=== PATIENT | male | born 1940 | race Caucasian/White ===

== ENCOUNTER 2018-12-24 14:29 | Observation (INO) | payer MEDICARE ==
[2018-12-24] MEDS ORDERED: BABY ASPIRIN 81 MG CHEW PO ONE (15:00)
--- NOTE | 2018-12-24 15:08 | ERPHSYRPT ---
- History of Present Illness Time Seen by Provider: 12/24/18 14:54 Historian: patient Exam Limitations: no limitations Patient Subjective Stated Complaint: Pt states "about an hour ago I started to have chest pain. It didn't get any better so I came here." Triage Nursing Assessment: Pt alert and oriented X 3, skin pwd Pt ambulates with an upright slow steady gait, able to speak in clear full sentences. PT in no apparent respiratory distress. Pt on home O2 2 LPM. Physician History: 78-year-old white male arrives with complaint of what he calls chest pain however he points to his left upper abdomen just inferior to the rib cage he describes this as sharp stabbing he states he is chronically short of breath he states it doesn't feel like when he had a heart attack but he has had heart problems in the past and and is worried about chest pain. He states he doesn't feel more short of breath than usual he is not nauseous. He states that he rated his pain initially had a 6 out of 10 he told the nurses 5 out of 10 he now states it is 3 out of 10 and it is improving. 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 Past medical history includes cataracts, COPD, coronary artery disease, high blood pressure, GERD, arthritis, past surgical history includes cataracts, pacer defibrillator, cholecystectomy, CABG, cardiac stents 4 Social history patient is a former smoker he denies alcohol or illicit drug use Timing/Duration: today (one hour prior to arriva) Activities at Onset: none Quality: sharpness, stabbing Location: other (located left upper abdomen just under the rib cage anteriorly) Chest Pain Radiation: no radiation Severity of Pain-Max: moderate Severity of Pain-Current: mild Associated Symptoms: abdominal pain (pain left upper quadrant just under the rib cage), shortness of breath (chronic short of breath), No nausea, No vomiting , No palpitations, No heartburn, No cough, No hurts to breathe, No diaphoresis, No chills, No fever, No fatigue, No weakness, No swelling/lump in chest, No syncope, No rash, No headache, No dizziness, No edema, No back pain Prior Chest Pain/Cardiac Workup: cardiac cath, heart attack Nitro Today/Relief: 0.4 mg x 3 Aspirin Treatment Today: 81 mg x 1 (81 mg at home), 81 mg x 3 (243 mg in the ER) Allergies/Adverse Reactions: No Known Drug Allergies Allergy (Unverified 12/24/18 14:40) Home Medications: Albuterol Sulfate [Albuterol Sulfate Hfa] 2 puffs IH Q4HPRN PRN 12/24/18 [ History] Allopurinol 300 mg [Zyloprim 300 mg] 300 mg PO DAILY 12/24/18 [History] Aspirin EC 81 mg [Ecotrin 81 mg] 81 mg PO DAILY 12/24/18 [History] Carvedilol 12.5 mg [Coreg 12.5 mg] 12.5 mg PO BID 12/24/18 [History] Clopidogrel Bisulfate 75 mg [PLAVIX 75 MG Tablet] 75 mg PO DAILY 12/24/18 [History] Diazepam 5 mg [Valium 5 MG] 1 mg PO DAILY 12/24/18 [History] Duloxetine HCl 20 mg PO DAILY 12/24/18 [History] Fluticasone/Salmeterol Disc [Advair 250-50 Diskus 14 Dose] 1 each IH BID 12/24/18 [History] Furosemide 40 mg [Lasix 40 MG] 40 mg PO DAILY 12/24/18 [History] Gabapentin 300 mg PO HS 12/24/18 [History] Isosorbide Mononitrate 60 mg [Imdur 60MG] 90 mg PO DAILY 12/24/18 [History] Magnesium 400 mg PO BID 12/24/18 [History] Meclizine HCl 25 mg [Antivert 25 mg] 25 mg PO DAILY PRN PRN 12/24/18 [ History] Nitroglycerin 0.4 mg SL UD 12/24/18 [History] Pantoprazole 20 mg [Protonix 20MG Tablet] 20 mg PO DAILY 12/24/18 [History ] Potassium Chloride 10 Meq Tab* [Klor Con 10 MEQ] 20 meq PO DAILY 12/24/18 [ History] Ranolazine 500 MG [Ranexa 500 MG] 500 mg PO DAILY 12/24/18 [History] Rosuvastatin Calcium [Crestor] 20 mg PO DAILY 12/24/18 [History] Sacubitril/Valsartan [Entresto 49 mg-51 mg Tablet] 1 each PO BID 12/24/18 [ History] Tiotropium Jelm Inhaler [Spiriva 18 Mcg/Cap Inhaler] 2 puff IH DAILY [History] Hx Tetanus, Diphtheria Vaccination/Date Given: No Hx Influenza Vaccination/Date Given: Yes Hx Pneumococcal Vaccination/Date Given: Yes Immunizations Up to Date: Yes - Review of Systems Constitutional: No Fever, No Chills Eyes: No Symptoms Ears, Nose, & Throat: No Symptoms Respiratory: Dyspnea (chronically short of breath), No Cough, No Dyspnea on Exertion (SANCHEZ), No Stridor, No Wheezing Cardiac: Chest Pain (Pain in the left upper abdomen just under rib cage patient describes this as chest pain) Abdominal/Gastrointestinal: Abdominal Pain (pain left upper abdomen just under rib cage), No Nausea, No Vomiting, No Diarrhea, No Constipation, No Hematemesis , No Hematochezia, No Melena, No Dysphagia, No Appetite Changes Genitourinary Symptoms: No Dysuria Musculoskeletal: No Back Pain, No Neck Pain Skin: No Rash Neurological: No Dizziness, No Focal Weakness, No Sensory Changes Endocrine: No Symptoms All Other Systems: Reviewed and Negative - Past Medical History Pertinent Past Medical History: Yes Neurological History: No Pertinent History ENT History: Cataracts Cardiac History: Coronary Artery Disease, Hypertension, Other Respiratory History: COPD Endocrine Medical History: No Pertinent History Musculoskeletal History: Arthritis GI Medical History: GERD History: No Pertinent History Psycho-Social History: No Pertinent History Male Reproductive Disorders: No Pertinent History - Past Surgical History Past Surgical History: Yes Neuro Surgical History: No Pertinent History Cardiac: CABG, Internal Defibrillator, Pacemaker Respiratory: No Pertinent History Gastrointestinal: Cholecystectomy Genitourinary: No Pertinent History Musculoskeletal: No Pertinent History Male Surgical History: No Pertinent History - Social History Smoking Status: Former smoker Exposure to second hand smoke: No Drug Use: none Patient Lives Alone: No - Nursing Vital Signs Nursing Vital Signs: Initial Vital Signs Temperature 97.6 F 12/24/18 14:30 Pulse Rate 86 12/24/18 14:30 Respiratory Rate 18 12/24/18 14:30 Blood Pressure 88/58 12/24/18 14:30 O2 Sat by Pulse Oximetry 96 12/24/18 14:30 Pain Scale Pain Intensity 5 - Physical Exam General Appearance: mild distress, alert Eye Exam: PERRL/EOMI, eyes nml inspection Ears, Nose, Throat Exam: normal ENT inspection, moist mucous membranes Neck Exam: normal inspection, non-tender, supple, full range of motion Respiratory Exam: normal breath sounds, lungs clear, No respiratory distress Cardiovascular Exam: regular rate/rhythm, normal heart sounds, normal peripheral pulses, capillary refill <2 sec Gastrointestinal/Abdomen Exam: soft, normal bowel sounds, tenderness (tender with palpation left upper abdomen just under her rib cage), No distention, No mass, No guarding, No ecchymosis, No pulsatile mass, No rebound, No hernia, No hepatomegaly, No organomegaly, No splenomegaly Back Exam: normal inspection, No CVA tenderness, No vertebral tenderness Extremity Exam: normal inspection, normal range of motion Neurologic Exam: alert, oriented x 3, cooperative, lining cementer II-XII nml as tested, normal mood/affect, sensation nml, No motor deficits SpO2 Interpretation: normal (96%) SpO2: 96 - Course Nursing assessment & vital signs reviewed: Yes EKG Interpreted by Me: RATE (88 bpm), Sinus Rhythm, Other (EKG: Sinus rhythm 88 bpm, moderate amount of artifact, indeterminate axis, no acute ST or T wave changes noted, no old EKG for comparison) - Radiology Exams Chest X-ray Interpretation: Interpreted by me (Chest x-ray: Pacer/defibrillator in place left chest, status post CABG, no infiltrates or pneumothorax noted.) Ordered Tests: Active Orders 24 hr Category Date Time Status EKG-ER Only STAT Care 12/24/18 15:00 Active IV Insertion STAT Care 12/24/18 15:00 Active Pulse Oximetry (ED) STAT Care 12/24/18 15:00 Active CHEST 1 VIEW (PORTABLE) Stat Exams 12/24/18 15:01 Taken AMYLASE Stat Lab 12/24/18 15:35 Completed CBC W DIFF Stat Lab 12/24/18 15:28 Completed CMP Stat Lab 12/24/18 15:28 Completed D-DIMER QUANTITATION Stat Lab 12/24/18 15:28 Completed LIPASE Stat Lab 12/24/18 15:35 Completed PROTIME WITH INR Stat Lab 12/24/18 15:28 Completed PTT Stat Lab 12/24/18 15:28 Completed TROPONIN Q3H Lab 12/24/18 15:28 Completed TROPONIN Q3H Lab 12/24/18 18:15 Ordered TROPONIN Q3H Lab 12/24/18 21:15 Ordered TROPONIN Q3H Lab 12/25/18 00:15 Ordered TROPONIN Q3H Lab 12/25/18 03:15 Ordered Transfer Order Routine Transfer 12/24/18 Ordered Medication Summary Generic Name Dose Route Start Last Admin Trade Name Freq PRN Reason Stop Dose Admin Sodium Chloride 1,000 mls @ 100 mls/hr 12/24/18 15:00 12/24/18 15:15 Sodium Chloride 0.9% 1000 Ml IV 01/23/19 14:59 100 mls/hr .Q10H MAURY Administration Potassium Chloride 100 mls @ 50 mls/hr 12/24/18 16:00 12/24/18 16:01 Potassium Chloride 20 Meq In Water 100ml IV 12/24/18 19:59 50 mls/hr Q2H MAURY Administration Discontinued Medications Generic Name Dose Route Start Last Admin Trade Name Freq PRN Reason Stop Dose Admin Aspirin 243 mg 12/24/18 15:00 12/24/18 15:14 Baby Aspirin 81 Mg Chew PO 12/24/18 15:01 243 mg STAT ONE Administration Aspirin Confirm 12/24/18 15:13 Baby Aspirin 81 Mg Chew Administered 12/24/18 15:14 Dose 243 mg .ROUTE .STK-MED ONE Lab/Rad Data: Laboratory Result Diagrams 12/24/18 15:28 12/24/18 15:28 Laboratory Results 12/24/18 12/24/18 12/24/18 Range/Units 15:35 15:28 15:28 WBC (4.0-10.5) K/mm3 RBC (4.1-5.6) M/mm3 Hgb (12.5-18.0) gm/dl Hct (42-50) % MCV (78-100) fl MCH (26-32) pg MCHC (32-36) g/dl RDW (11.5-14.0) % Plt Count (150-450) K/mm3 MPV (6-9.5) fl Gran % (36.0-66.0) % Eos # (Auto) (0-0.5) Absolute Lymphs (auto) (1.0-4.6) Absolute Monos (auto) (0.0-1.3) Lymphocytes % (24.0-44.0) % Monocytes % (0.0-12.0) % Eosinophils % (0.00-5.0) % Basophils % (0.0-0.4) % Absolute Granulocytes (1.4-6.9) Basophils # (0-0.4) PT 13.3 H (8.83-12.87) SECONDS INR 1.14 (0.8-3.0) APTT 31.1 (24.1-36.1) SECONDS D-Dimer 261 (215-500) ng/mL Sodium (137-145) mmol/L Potassium (3.5-5.1) mmol/L Chloride (98-107) mmol/L Carbon Dioxide (22-30) mmol/L Anion Gap (5-15) MEQ/L BUN (9-20) mg/dL Creatinine (0.66-1.25) mg/dL Estimated GFR ML/MIN Glucose (74-106) mg/dL Calcium (8.4-10.2) mg/dL Total Bilirubin (0.2-1.3) mg/dL AST (17-59) U/L ALT (0-50) U/L Alkaline Phosphatase (38-126) U/L Troponin I 0.013 (0.000-0.034) ng/mL Serum Total Protein (6.3-8.2) g/dL Albumin (3.5-5.0) g/dL Amylase 31 (30-110) U/L Lipase 36 (23-300) U/L 12/24/18 12/24/18 Range/Units 15:28 15:28 WBC 7.5 (4.0-10.5) K/mm3 RBC 4.75 (4.1-5.6) M/mm3 Hgb 15.2 (12.5-18.0) gm/dl Hct 43.5 (42-50) % MCV 91.6 (78-100) fl MCH 32.0 (26-32) pg MCHC 34.9 (32-36) g/dl RDW 13.2 (11.5-14.0) % Plt Count 207 (150-450) K/mm3 MPV 11.3 H (6-9.5) fl Gran % 62.6 (36.0-66.0) % Eos # (Auto) 0.12 (0-0.5) Absolute Lymphs (auto) 2.07 (1.0-4.6) Absolute Monos (auto) 0.57 (0.0-1.3) Lymphocytes % 27.8 (24.0-44.0) % Monocytes % 7.7 (0.0-12.0) % Eosinophils % 1.6 (0.00-5.0) % Basophils % 0.3 (0.0-0.4) % Absolute Granulocytes 4.67 (1.4-6.9) Basophils # 0.02 (0-0.4) PT (8.83-12.87) SECONDS INR (0.8-3.0) APTT (24.1-36.1) SECONDS D-Dimer (215-500) ng/mL Sodium 142 (137-145) mmol/L Potassium 2.7 L* (3.5-5.1) mmol/L Chloride 98 (98-107) mmol/L Carbon Dioxide 32 H (22-30) mmol/L Anion Gap 15.2 H (5-15) MEQ/L BUN 19 (9-20) mg/dL Creatinine 1.13 (0.66-1.25) mg/dL Estimated GFR > 60.0 ML/MIN Glucose 196 H (74-106) mg/dL Calcium 9.8 (8.4-10.2) mg/dL Total Bilirubin 1.20 (0.2-1.3) mg/dL AST 23 (17-59) U/L ALT 16 (0-50) U/L Alkaline Phosphatase 70 (38-126) U/L Troponin I (0.000-0.034) ng/mL Serum Total Protein 7.8 (6.3-8.2) g/dL Albumin 4.2 (3.5-5.0) g/dL Amylase (30-110) U/L Lipase (23-300) U/L - Progress Progress: improved Air Movement: fair Progress Note: 12/24/18 15:08 78-year-old white male with history of cataracts, COPD, coronary artery disease , high blood pressure, GERD, arthritis, with a history of CABG, stents 4 and a pacer defibrillator. He arrives with complaint of pain in which she describes his chest pain but when he shows me the pain he points with one finger to his left upper abdomen just under the rib cage. He states that this a sharp stabbing pain this began one hour prior to arrival he states he is chronically short of breath but it is not more short of breath than usual he denies any nausea or vomiting. Patient has an EKG which shows sinus rhythm moderate amount of artifact indeterminate axis [address] or T wave changes are noted. Patient does state that he feels like he is getting better. He has a very strong history of cardiac disease. He apparently has a physician and a corset maker in [facility]. Patient took one baby aspirin today he is also on Plavix 75 mg daily. We'll go ahead and give patient aspirin 243 mg orally and obtain appropriate labs and x-rays. 12/24/18 16:08 Patient is feeling better pain is essentially gone Patient's chest x-ray no acute disease process noted troponin within normal limits with the level of 0.013D dimer within normal limits amylase and lipase are normal chemistry sodium 142 potassium is low at 2.7 chloride 98 bicarbonate 32 BUN 19 creatinine 1.13 glucose 196 CBC is normal with white count of 7.5 hemoglobin 15.2 hematocrit 43.5 Patient's vitals are stable blood pressure systolic 102 I've ordered a K rider 40 mEq for the patient (20 mEq every 2 hours 2) The patient wishes to stay here I've discussed the case with Dr. Carbajal who is assistant controller for the hospital. Will go ahead and place patient on observation continue serial troponins. And patient will get his K rider. Patient is in stable condition at this time - Departure Departure Disposition: Home, Observation Clinical Impression: Hypokalemia Chest pain Qualifiers: Chest pain type: unspecified Qualified Code(s): R07.9 - Chest pain, unspecified Abdominal pain Qualifiers: Abdominal location: left upper quadrant Qualified Code(s): R10.12 - Left upper quadrant pain Condition: Fair Critical Care Time: No Referrals: Provider,Unknown [Primary Care Provider] -
[2018-12-24] MEDS ORDERED: BABY ASPIRIN 81 MG CHEW ONE (15:13)
[2018-12-24] MEDS: Sodium Chloride 0.9% 1000 ML 1,000 ML IV SCH (15:15)
[2018-12-24 15:30] LABS: BASOPHIL % 0.3 % (0.0-0.4); Basophil (Absolute #) 0.02 (0-0.4); Eosinophil % 1.6 % (0.00-5.0); Eosinophil (Absolute #) 0.12 (0-0.5); Granulocyte Absolute (ANC) 4.67 (1.4-6.9); Granulocytes % 62.6 % (36.0-66.0); Hematocrit 43.5 % (42-50); Hemoglobin 15.2 gm/dl (12.5-18.0); Lymphocyte (Absolute #) 2.07 (1.0-4.6); Lymphocytes % 27.8 % (24.0-44.0); Mean Cell Volume 91.6 fl (78-100); Mean Corpuscular Hgb Concent. 34.9 g/dl (32-36); Mean Platelet Volume 11.3 fl (6-9.5); Monocyte (Absolute #) 0.57 (0.0-1.3); Monocytes % 7.7 % (0.0-12.0); Platelet Count 207 K/mm3 (150-450); Red Blood Count 4.75 M/mm3 (4.1-5.6); Red Cell Distribution Width 13.2 % (11.5-14.0); White Blood Count 7.5 K/mm3 (4.0-10.5)
[2018-12-24 15:43] LABS: INR 1.14 (0.8-3.0); PROTIME 13.3 SECONDS (8.83-12.87)
[2018-12-24 15:45] LABS: PTT 31.1 SECONDS (24.1-36.1)
[2018-12-24 15:46] LABS: AMYLASE 31 U/L (30-110); LIPASE 36 U/L (23-300)
[2018-12-24 15:47] LABS: ALBUMIN 4.2 g/dL (3.5-5.0); ALKALINE PHOSPHATASE 70 U/L (38-126); ANION GAP 15.2 MEQ/L (5-15); BLOOD UREA NITROGEN 19 mg/dL (9-20); CHLORIDE 98 mmol/L (98-107); Calcium 9.8 mg/dL (8.4-10.2); Carbon Dioxide 32 mmol/L (22-30); Creatinine 1 1.13 mg/dL (0.66-1.25); Glucose 196 mg/dL (74-106); SGOT/AST 23 U/L (17-59); SGPT/ALT 16 U/L (0-50); SODIUM 142 mmol/L (137-145); Total Protein 7.8 g/dL (6.3-8.2)
[2018-12-24 15:49] LABS: Potassium 2.7 mmol/L (3.5-5.1)
[2018-12-24] MEDS: POTASSIUM CHLORIDE 20 mEq IN WATER 100ML 100 ML IV SCH ×2 (16:01→18:21)
--- NOTE | 2018-12-24 16:16 | XRAY ---
Indication: Chest pain. Comparison: None Portable chest demonstrates blunting both costophrenic angles either tiny pleural effusion versus pleural thickening. Remaining lungs clear with incidental tiny left midlung calcified granuloma. Heart is not enlarged with CABG surgery and left-sided AICD. Bony thorax intact with mild osteopenia and degenerative changes. Impression: Tiny bibasilar pleural effusions versus pleural thickening. Remaining chest nonacute with chronic features.
[2018-12-24] MEDS ORDERED: Sodium Chloride 0.9% 1000 ML 1,000 ML IV SCH (16:26)
[2018-12-24] MEDS: ENTRESTO 49 MG-51 MG TABLET PO SCH (21:12)
[2018-12-24] MEDS: COREG 12.5 MG PO SCH (21:12)
[2018-12-24] MEDS ORDERED: NEURONTIN 300 MG PO SCH (22:00)
[2018-12-24] MEDS: POTASSIUM CHLORIDE 20 mEq IN WATER 100ML 20 MEQ/100 ML BAG IV SCH (23:07)
[2018-12-25] MEDS: Sodium Chloride 0.9% 1000 ML 1,000 ML IV SCH (01:15)
[2018-12-25] MEDS: POTASSIUM CHLORIDE 20 mEq IN WATER 100ML 20 MEQ/100 ML BAG IV SCH (01:16)
[2018-12-25 04:11] LABS: ALBUMIN 3.5 g/dL (3.5-5.0); ALKALINE PHOSPHATASE 60 U/L (38-126); ANION GAP 9.4 MEQ/L (5-15); BLOOD UREA NITROGEN 14 mg/dL (9-20); CHLORIDE 101 mmol/L (98-107); Carbon Dioxide 33 mmol/L (22-30); Creatinine 1 0.78 mg/dL (0.66-1.25); Glucose 119 mg/dL (74-106); SGOT/AST 26 U/L (17-59); SGPT/ALT 12 U/L (0-50); SODIUM 141 mmol/L (137-145); Total Protein 6.5 g/dL (6.3-8.2)
[2018-12-25 04:14] LABS: BASOPHIL % 0.4 % (0.0-0.4); Basophil (Absolute #) 0.02 (0-0.4); Eosinophil % 2.5 % (0.00-5.0); Eosinophil (Absolute #) 0.14 (0-0.5); Granulocyte Absolute (ANC) 2.74 (1.4-6.9); Granulocytes % 48.4 % (36.0-66.0); Hematocrit 39.1 % (42-50); Hemoglobin 13.5 gm/dl (12.5-18.0); Lymphocyte (Absolute #) 2.13 (1.0-4.6); Lymphocytes % 37.6 % (24.0-44.0); Mean Cell Volume 92.4 fl (78-100); Mean Corpuscular Hemoglobin 31.9 pg (26-32); Mean Corpuscular Hgb Concent. 34.5 g/dl (32-36); Mean Platelet Volume 10.8 fl (6-9.5); Monocyte (Absolute #) 0.63 (0.0-1.3); Monocytes % 11.1 % (0.0-12.0); Platelet Count 150 K/mm3 (150-450); Red Blood Count 4.23 M/mm3 (4.1-5.6); Red Cell Distribution Width 12.9 % (11.5-14.0); White Blood Count 5.7 K/mm3 (4.0-10.5)
[2018-12-25 04:18] LABS: Potassium 2.8 mmol/L (3.5-5.1)
[2018-12-25] MEDS ORDERED: Spiriva 18 Mcg/Cap Inhaler IH SCH (07:00)
[2018-12-25] MEDS ORDERED: Advair Hfa 115/21 Common canister IH SCH (07:00)
[2018-12-25] MEDS ORDERED: PROVENTIL COMMON CANISTER IH PRN (07:00)
[2018-12-25] MEDS ORDERED: ANTIVERT 25 MG PO PRN (07:12)
[2018-12-25] MEDS ORDERED: Nitrostat 0.4 MG Tablet SL PRN (07:15)
[2018-12-25] MEDS ORDERED: DIAZEPAM 1 MG PO SCH (07:15)
[2018-12-25] MEDS ORDERED: MEDICATION INTERVENTION MC SCH ×2 (07:45)
[2018-12-25] MEDS ORDERED: POTASSIUM CHLORIDE 20 mEq IN WATER 100ML 20 MEQ/100 ML BAG IV SCH (08:45)
[2018-12-25] MEDS ORDERED: Potassium Chloride 40 MEQ/20 ML VIAL 40 MEQ, Magnesium Sulfate 1 GM/2 ML VIAL*** 1 GM i... IV ONE ×3 (09:15)
[2018-12-25] MEDS ORDERED: DULOXETINE HCL 20 MG PO SCH (10:00)
[2018-12-25] MEDS ORDERED: THERAGRAN MULTIVITAMIN PO SCH (10:00)
[2018-12-25] MEDS ORDERED: Lasix 40 MG PO SCH (10:00)
[2018-12-25] MEDS ORDERED: NON-FORMULARY ITEM (Multivitamin [Multi-Vitamin Daily] 1 EACH) PO SCH (10:00)
[2018-12-25] MEDS ORDERED: PLAVIX 75 MG Tablet PO SCH (10:00)
[2018-12-25] MEDS ORDERED: DHA PO SCH (10:00)
[2018-12-25] MEDS ORDERED: ZOCOR 20MG PO SCH (10:00)
[2018-12-25] MEDS ORDERED: Imdur 30 MG PO SCH (10:00)
[2018-12-25] MEDS ORDERED: Protonix 20MG Tablet PO SCH (10:00)
[2018-12-25] MEDS ORDERED: EPA PO SCH (10:00)
[2018-12-25] MEDS ORDERED: OMEGA PO SCH (10:00)
[2018-12-25] MEDS ORDERED: NON-FORMULARY ITEM (Rosuvastatin Calcium [Crestor] 20 MG) PO SCH (10:00)
[2018-12-25] MEDS ORDERED: Ecotrin 325 MG PO SCH (10:00)
[2018-12-25] MEDS ORDERED: FISH OIL 1,000 MG CAPSULE PO SCH (10:00)
[2018-12-25] MEDS ORDERED: ZYLOPRIM 300 MG PO SCH (10:00)
[2018-12-25] MEDS ORDERED: FISH OIL PO SCH (10:00)
[2018-12-25] MEDS ORDERED: Imdur 60MG PO SCH (10:00)
[2018-12-25] MEDS ORDERED: Ranexa 500 MG PO SCH (10:00)
[2018-12-25] MEDS ORDERED: ECOTRIN 81 MG PO SCH (10:00)
[2018-12-25] MEDS: COREG 12.5 MG PO SCH (10:30)
[2018-12-25] MEDS: ENTRESTO 49 MG-51 MG TABLET PO SCH (10:32)
[2018-12-25 12:09] VITALS: BP 105/52; PULSE 74; O2SAT 93
--- NOTE | 2018-12-25 12:49 | PCM.SSS ---
History of Present Illness - Chief Complaint Chief Complaint: CHEST PAIN for 1 day History of Present Illness: 78-year-old white male arrives with complaint of what he calls chest pain however he points to his left upper abdomen just inferior to the rib cage he describes this as sharp stabbing he states he is chronically short of breath he states it doesn't feel like when he had a heart attack but he has had heart problems in the past and and is worried about chest pain. He states he doesn't feel more short of breath than usual he is not nauseous. He states that he rated his pain initially had a 6 out of 10 he told the nurses 5 out of 10 he now states it is 3 out of 10 and it is improving. Patient apparently with a basket person and family doctor in [facility] he states he was visiting people when pain began. Past medical history includes cataracts, COPD, coronary artery disease, high blood pressure, GERD, arthritis, past surgical history includes cataracts, pacer defibrillator, cholecystectomy, CABG, cardiac stents 4 - Review of Systems Constitutional: No Fever, No Chills Eyes: No Symptoms Ears, Nose, & Throat: No Symptoms Respiratory: No Cough, No Short Of Breath Cardiac: No Chest Pain, No Edema, No Syncope Abdominal/Gastrointestinal: No Abdominal Pain, No Nausea, No Vomiting, No Diarrhea Genitourinary Symptoms: No Dysuria Musculoskeletal: No Back Pain, No Neck Pain Skin: No Rash Neurological: No Dizziness, No Focal Weakness, No Sensory Changes Psychological: No Symptoms Endocrine: No Symptoms Hematologic/Lymphatic: No Symptoms Immunological/Allergic: No Symptoms Medications & Allergies Home Medications: Home Medication List Albuterol Sulfate [Albuterol Sulfate Hfa] 2 puffs IH Q4HPRN PRN 12/24/18 [ History Confirmed 12/24/18] Allopurinol 300 mg [Zyloprim 300 mg] 300 mg PO DAILY 12/24/18 [History Confirmed 12/24/18] Aspirin EC 81 mg [Ecotrin 81 mg] 81 mg PO DAILY 12/24/18 [History Confirmed 12/24/18] Carvedilol 12.5 mg [Coreg 12.5 mg] 12.5 mg PO BID 12/24/18 [History Confirmed 12/24/18] Clopidogrel Bisulfate 75 mg [PLAVIX 75 MG Tablet] 75 mg PO DAILY 12/24/18 [History Confirmed 12/24/18] Diazepam [Valium] 1 mg PO UD 12/24/18 [History Confirmed 12/24/18] Duloxetine HCl 20 mg PO DAILY 12/24/18 [History Confirmed 12/24/18] Fluticasone/Salmeterol Disc [Advair 250-50 Diskus 14 Dose] 1 each IH BID 12/24/18 [History Confirmed 12/24/18] Furosemide 40 mg [Lasix 40 MG] 40 mg PO DAILY 12/24/18 [History Confirmed 12/24/18] Gabapentin 300 mg PO HS 12/24/18 [History Confirmed 12/24/18] Isosorbide Mononitrate 60 mg [Imdur 60MG] 90 mg PO DAILY 12/24/18 [History Confirmed 12/24/18] Meclizine HCl 25 mg [Antivert 25 mg] 25 mg PO DAILY PRN PRN 12/24/18 [ History Confirmed 12/24/18] Multivitamin [Multi-Vitamin Daily] 1 each PO DAILY 12/24/18 [History Confirmed 12/24/18] Nitroglycerin 0.4 mg SL UD 12/24/18 [History Confirmed 12/24/18] [place]-3S/Dha/Epa/Fish Oil [[place]-3 Fish Oil 1,000 mg Sfgl] 1 each PO DAILY 12/24 [History Confirmed 12/24/18] Pantoprazole 20 mg [Protonix 20MG Tablet] 20 mg PO DAILY 12/24/18 [ History Confirmed 12/24/18] Ranolazine 500 MG [Ranexa 500 MG] 500 mg PO DAILY 12/24/18 [History Confirmed 12/24/18] Rosuvastatin Calcium [Crestor] 20 mg PO DAILY 12/24/18 [History Confirmed ] Sacubitril/Valsartan [Entresto 49 mg-51 mg Tablet] 1 each PO BID 12/24/18 [ History Confirmed 12/24/18] Tiotropium [place] Inhaler [Spiriva 18 Mcg/Cap Inhaler] 2 puff IH DAILY [History Confirmed 12/24/18] Potassium Chloride [K-Dur] 10 meq PO DAILY #30 tab.er.prt 12/25/18 [Rx] Allergies/Adverse Reactions: Allergies Allergy/AdvReac Type Severity Reaction Status Date / Time No Known Drug Allergies Allergy Unverified 12/24/18 14:40 - Past Medical History Past Medical History: Yes Neurological History: No Pertinent History ENT History: No Pertinent History Cardiac History: Congestive Heart Failure, Coronary Artery Disease, Hypertension , Myocardial Infarction ([place]) Respiratory History: CHF, COPD Endocrine Medical History: No Pertinent History Musculoskelatal History: Arthritis GI Medical History: Esophageal Disorder, Hemorrhoids History: Other Pyscho-Social History: Depression Male Reproductive Disorders: Prostate Problems Comment: KIDNEY STONES, ARTHRITIS OF KNEES AND BACK - Past Surgical History Past Surgical History: Yes Neuro Surgical History: No Pertinent History Cardiac History: CABG, Cardiac Stent, Internal Defibrillator, Pacemaker Respiratory Surgery: No Pertinent History GI Surgical History: Appendectomy, Cholecystectomy Genitourinary Surgical Hx: Other Musculskeletal Surgical Hx: No Pertinent History Male Surgical History: No Pertinent History Other Surgical History: CABG X 3, STENTS X 4, LITHOTRIPSY - Social History Smoking Status: Former smoker Exposure to second hand smoke: No Alcohol: None Drug Use: none - Physical Exam Vital Signs: Vital Signs - 24 hr Temp Pulse Pulse Resp BP Pulse Ox 12/25/18 12:00 98.5 F 74 18 105/52 93 L 12/25/18 08:00 98.2 F 79 18 129/73 94 L 12/25/18 07:18 76 20 92 L 12/25/18 04:00 18 12/25/18 03:51 97.8 F 78 18 118/64 91 L 12/25/18 00:00 18 12/24/18 23:46 97.3 F 76 18 116/82 92 L 12/24/18 20:00 17 12/24/18 19:51 94 L 12/24/18 19:36 97.6 F 78 17 122/59 92 L 12/24/18 17:00 96 12/24/18 16:57 85 22 97/55 12/24/18 16:41 98 F 85 22 97/55 96 12/24/18 16:16 96 12/24/18 16:07 97.6 F 82 18 106/66 94 L 12/24/18 15:13 80 20 102/67 95 12/24/18 15:11 94 L 12/24/18 14:30 97.6 F 88 86 18 88/58 96 Oxygen-Last 24 hours O2 Percentage 2 Liters = 28% O2 Percentage 2 Liters = 28% O2 Percentage 2 Liters = 28% O2 Percentage 2 Liters = 28% O2 Percentage 2 Liters = 28% O2 Percentage 3 Liters = 32% General Appearance: no apparent distress, alert Neurologic Exam: alert, oriented x 3, cooperative, normal mood/affect, nml cerebellar function, nml station & gait, sensation nml, No motor deficits Eye Exam: PERRL/EOMI, eyes nml inspection Ears, Nose, Throat Exam: normal ENT inspection, TMs normal, pharynx normal, moist mucous membranes Neck Exam: normal inspection, non-tender, supple, full range of motion Respiratory Exam: normal breath sounds, lungs clear, No respiratory distress Cardiovascular Exam: regular rate/rhythm, normal heart sounds, normal peripheral pulses Gastrointestinal/Abdomen Exam: soft, normal bowel sounds, No tenderness, No mass Back Exam: normal inspection, normal range of motion, No CVA tenderness, No vertebral tenderness Extremity Exam: normal inspection, normal range of motion, pelvis stable Skin Exam: normal color, warm, dry, No rash Lymphatic Exam: No adenopathy Results - Labs Lab/Micro Results: Lab Results-Last 24 Hours 12/24/18 12/24/18 12/24/18 Range/Units 15:28 15:28 15:28 WBC 7.5 (4.0-10.5) K/mm3 RBC 4.75 (4.1-5.6) M/mm3 Hgb 15.2 (12.5-18.0) gm/dl Hct 43.5 (42-50) % MCV 91.6 (78-100) fl MCH 32.0 (26-32) pg MCHC 34.9 (32-36) g/dl RDW 13.2 (11.5-14.0) % Plt Count 207 (150-450) K/mm3 MPV 11.3 H (6-9.5) fl Gran % 62.6 (36.0-66.0) % Eos # (Auto) 0.12 (0-0.5) Absolute Lymphs (auto) 2.07 (1.0-4.6) Absolute Monos (auto) 0.57 (0.0-1.3) Lymphocytes % 27.8 (24.0-44.0) % Monocytes % 7.7 (0.0-12.0) % Eosinophils % 1.6 (0.00-5.0) % Basophils % 0.3 (0.0-0.4) % Absolute Granulocytes 4.67 (1.4-6.9) Basophils # 0.02 (0-0.4) PT 13.3 H (8.83-12.87) SECONDS INR 1.14 (0.8-3.0) APTT 31.1 (24.1-36.1) SECONDS D-Dimer 261 (215-500) ng/mL Sodium 142 (137-145) mmol/L Potassium 2.7 L* (3.5-5.1) mmol/L Chloride 98 (98-107) mmol/L Carbon Dioxide 32 H (22-30) mmol/L Anion Gap 15.2 H (5-15) MEQ/L BUN 19 (9-20) mg/dL Creatinine 1.13 (0.66-1.25) mg/dL Estimated GFR > 60.0 ML/MIN Glucose 196 H (74-106) mg/dL Calcium 9.8 (8.4-10.2) mg/dL Magnesium (1.6-2.3) mg/dL Total Bilirubin 1.20 (0.2-1.3) mg/dL AST 23 (17-59) U/L ALT 16 (0-50) U/L Alkaline Phosphatase 70 (38-126) U/L Troponin I (0.000-0.034) ng/mL Serum Total Protein 7.8 (6.3-8.2) g/dL Albumin 4.2 (3.5-5.0) g/dL Amylase (30-110) U/L Lipase (23-300) U/L 12/24/18 12/24/18 12/24/18 Range/Units 15:28 15:35 18:30 WBC (4.0-10.5) K/mm3 RBC (4.1-5.6) M/mm3 Hgb (12.5-18.0) gm/dl Hct (42-50) % MCV (78-100) fl MCH (26-32) pg MCHC (32-36) g/dl RDW (11.5-14.0) % Plt Count (150-450) K/mm3 MPV (6-9.5) fl Gran % (36.0-66.0) % Eos # (Auto) (0-0.5) Absolute Lymphs (auto) (1.0-4.6) Absolute Monos (auto) (0.0-1.3) Lymphocytes % (24.0-44.0) % Monocytes % (0.0-12.0) % Eosinophils % (0.00-5.0) % Basophils % (0.0-0.4) % Absolute Granulocytes (1.4-6.9) Basophils # (0-0.4) PT (8.83-12.87) SECONDS INR (0.8-3.0) APTT (24.1-36.1) SECONDS D-Dimer (215-500) ng/mL Sodium (137-145) mmol/L Potassium (3.5-5.1) mmol/L Chloride (98-107) mmol/L Carbon Dioxide (22-30) mmol/L Anion Gap (5-15) MEQ/L BUN (9-20) mg/dL Creatinine (0.66-1.25) mg/dL Estimated GFR ML/MIN Glucose (74-106) mg/dL Calcium (8.4-10.2) mg/dL Magnesium (1.6-2.3) mg/dL Total Bilirubin (0.2-1.3) mg/dL AST (17-59) U/L ALT (0-50) U/L Alkaline Phosphatase (38-126) U/L Troponin I 0.013 < 0.012 (0.000-0.034) ng/mL Serum Total Protein (6.3-8.2) g/dL Albumin (3.5-5.0) g/dL Amylase 31 (30-110) U/L Lipase 36 (23-300) U/L 12/24/18 12/24/18 12/25/18 Range/Units 22:48 22:48 00:15 WBC (4.0-10.5) K/mm3 RBC (4.1-5.6) M/mm3 Hgb (12.5-18.0) gm/dl Hct (42-50) % MCV (78-100) fl MCH (26-32) pg MCHC (32-36) g/dl RDW (11.5-14.0) % Plt Count (150-450) K/mm3 MPV (6-9.5) fl Gran % (36.0-66.0) % Eos # (Auto) (0-0.5) Absolute Lymphs (auto) (1.0-4.6) Absolute Monos (auto) (0.0-1.3) Lymphocytes % (24.0-44.0) % Monocytes % (0.0-12.0) % Eosinophils % (0.00-5.0) % Basophils % (0.0-0.4) % Absolute Granulocytes (1.4-6.9) Basophils # (0-0.4) PT (8.83-12.87) SECONDS INR (0.8-3.0) APTT (24.1-36.1) SECONDS D-Dimer (215-500) ng/mL Sodium (137-145) mmol/L Potassium 2.6 L* (3.5-5.1) mmol/L Chloride (98-107) mmol/L Carbon Dioxide (22-30) mmol/L Anion Gap (5-15) MEQ/L BUN (9-20) mg/dL Creatinine (0.66-1.25) mg/dL Estimated GFR ML/MIN Glucose (74-106) mg/dL Calcium (8.4-10.2) mg/dL Magnesium (1.6-2.3) mg/dL Total Bilirubin (0.2-1.3) mg/dL AST (17-59) U/L ALT (0-50) U/L Alkaline Phosphatase (38-126) U/L Troponin I 0.013 0.014 (0.000-0.034) ng/mL Serum Total Protein (6.3-8.2) g/dL Albumin (3.5-5.0) g/dL Amylase (30-110) U/L Lipase (23-300) U/L 12/25/18 12/25/18 12/25/18 Range/Units 03:15 04:00 04:00 WBC 5.7 (4.0-10.5) K/mm3 RBC 4.23 (4.1-5.6) M/mm3 Hgb 13.5 (12.5-18.0) gm/dl Hct 39.1 L (42-50) % MCV 92.4 (78-100) fl MCH 31.9 (26-32) pg MCHC 34.5 (32-36) g/dl RDW 12.9 (11.5-14.0) % Plt Count 150 (150-450) K/mm3 MPV 10.8 H (6-9.5) fl Gran % 48.4 (36.0-66.0) % Eos # (Auto) 0.14 (0-0.5) Absolute Lymphs (auto) 2.13 (1.0-4.6) Absolute Monos (auto) 0.63 (0.0-1.3) Lymphocytes % 37.6 (24.0-44.0) % Monocytes % 11.1 (0.0-12.0) % Eosinophils % 2.5 (0.00-5.0) % Basophils % 0.4 (0.0-0.4) % Absolute Granulocytes 2.74 (1.4-6.9) Basophils # 0.02 (0-0.4) PT (8.83-12.87) SECONDS INR (0.8-3.0) APTT (24.1-36.1) SECONDS D-Dimer (215-500) ng/mL Sodium 141 (137-145) mmol/L Potassium 2.8 L* (3.5-5.1) mmol/L Chloride 101 (98-107) mmol/L Carbon Dioxide 33 H (22-30) mmol/L Anion Gap 9.4 (5-15) MEQ/L BUN 14 (9-20) mg/dL Creatinine 0.78 (0.66-1.25) mg/dL Estimated GFR > 60.0 ML/MIN Glucose 119 H (74-106) mg/dL Calcium 9.0 (8.4-10.2) mg/dL Magnesium (1.6-2.3) mg/dL Total Bilirubin 0.90 (0.2-1.3) mg/dL AST 26 (17-59) U/L ALT 12 (0-50) U/L Alkaline Phosphatase 60 (38-126) U/L Troponin I 0.013 (0.000-0.034) ng/mL Serum Total Protein 6.5 (6.3-8.2) g/dL Albumin 3.5 (3.5-5.0) g/dL Amylase (30-110) U/L Lipase (23-300) U/L 12/25/18 12/25/18 Range/Units 04:00 08:20 WBC (4.0-10.5) K/mm3 RBC (4.1-5.6) M/mm3 Hgb (12.5-18.0) gm/dl Hct (42-50) % MCV (78-100) fl MCH (26-32) pg MCHC (32-36) g/dl RDW (11.5-14.0) % Plt Count (150-450) K/mm3 MPV (6-9.5) fl Gran % (36.0-66.0) % Eos # (Auto) (0-0.5) Absolute Lymphs (auto) (1.0-4.6) Absolute Monos (auto) (0.0-1.3) Lymphocytes % (24.0-44.0) % Monocytes % (0.0-12.0) % Eosinophils % (0.00-5.0) % Basophils % (0.0-0.4) % Absolute Granulocytes (1.4-6.9) Basophils # (0-0.4) PT (8.83-12.87) SECONDS INR (0.8-3.0) APTT (24.1-36.1) SECONDS D-Dimer (215-500) ng/mL Sodium (137-145) mmol/L Potassium 3.0 L (3.5-5.1) mmol/L Chloride (98-107) mmol/L Carbon Dioxide (22-30) mmol/L Anion Gap (5-15) MEQ/L BUN (9-20) mg/dL Creatinine (0.66-1.25) mg/dL Estimated GFR ML/MIN Glucose (74-106) mg/dL Calcium (8.4-10.2) mg/dL Magnesium 1.5 L (1.6-2.3) mg/dL Total Bilirubin (0.2-1.3) mg/dL AST (17-59) U/L ALT (0-50) U/L Alkaline Phosphatase (38-126) U/L Troponin I (0.000-0.034) ng/mL Serum Total Protein (6.3-8.2) g/dL Albumin (3.5-5.0) g/dL Amylase (30-110) U/L Lipase (23-300) U/L - Radiology Impressions Radiology Exams & Impressions: Radiology Procedures Category Date Time Status CHEST 1 VIEW (PORTABLE) Stat Exams 12/24/18 15:01 Completed - Other Procedures and Tests Respiratory Therapy 12/24/18 19:48 Oxygen Nasal Cannula 3 lpm 12/25/18 07:18 Respiratory Therapy Assessment DAILY Assessment/Plan (1) Hypokalemia Current Visit: Yes Status: Acute Assessment & Plan: resolving Code(s): E87.6 - HYPOKALEMIA (2) Chest pain Current Visit: Yes Status: Acute Qualifiers: Chest pain type: unspecified Qualified Code(s): R07.9 - Chest pain, unspecified Assessment & Plan: [place] ruled out, doing better Code(s): R07.9 - CHEST PAIN, UNSPECIFIED Hospital Summary - Hospital Course Hospital Course: Chief Complaint Diagnosis CHEST PAIN Allergies Allergy/AdvReac Type Severity Reaction Status Date / Time No Known Drug Allergies Allergy Unverified 12/24/18 14:40 Vital Signs (Last 24 hours) Temp Pulse Pulse Resp BP Pulse Ox 12/25/18 12:00 98.5 F 74 18 105/52 93 L 12/25/18 08:00 98.2 F 79 18 129/73 94 L 12/25/18 07:18 76 20 92 L 12/25/18 04:00 18 12/25/18 03:51 97.8 F 78 18 118/64 91 L 12/25/18 00:00 18 12/24/18 23:46 97.3 F 76 18 116/82 92 L 12/24/18 20:00 17 12/24/18 19:51 94 L 12/24/18 19:36 97.6 F 78 17 122/59 92 L 12/24/18 17:00 96 12/24/18 16:57 85 22 97/55 12/24/18 16:41 98 F 85 22 97/55 96 12/24/18 16:16 96 12/24/18 16:07 97.6 F 82 18 106/66 94 L 12/24/18 15:13 80 20 102/67 95 12/24/18 15:11 94 L 12/24/18 14:30 97.6 F 88 86 18 88/58 96 Home Medications Medication Instructions Recorded Confirmed Last Taken Type Albuterol Sulfate [Albuterol 2 puffs IH Q4HPRN PRN 12/24/18 12/24/18 Unknown History Sulfate Hfa] Allopurinol 300 mg [Zyloprim 300 mg PO DAILY 12/24/18 12/24/18 12/24/18 History 300 mg] Aspirin EC 81 mg [Ecotrin 81 81 mg PO DAILY 12/24/18 12/24/18 12/24/18 History mg] Carvedilol 12.5 mg [Coreg 12.5 12.5 mg PO BID 12/24/18 12/24/18 12/24/18 History mg] Clopidogrel Bisulfate 75 mg 75 mg PO DAILY 12/24/18 12/24/18 12/24/18 History [PLAVIX 75 MG Tablet] Diazepam [Valium] 1 mg PO UD 12/24/18 12/24/18 12/23/18 History Duloxetine HCl 20 mg PO DAILY 12/24/18 12/24/18 12/24/18 History Fluticasone/Salmeterol Disc 1 each IH BID 12/24/18 12/24/18 12/24/18 History [Advair 250-50 Diskus 14 Dose] Furosemide 40 mg [Lasix 40 40 mg PO DAILY 12/24/18 12/24/18 12/24/18 History MG] Gabapentin 300 mg PO HS 12/24/18 12/24/18 12/24/18 History Isosorbide Mononitrate 60 mg 90 mg PO DAILY 12/24/18 12/24/18 12/24/18 History [Imdur 60MG] Meclizine HCl 25 mg [Antivert 25 mg PO DAILY PRN PRN 12/24/18 12/24/18 Unknown History 25 mg] Multivitamin [Multi-Vitamin Daily] 1 each PO DAILY 0412/24/18 12/24/18 History Nitroglycerin 0.4 mg SL UD 12/24/18 12/24/18 Unknown History [place]-3S/Dha/Epa/Fish Oil [[place]-3 1 each PO DAILY 12/24/18 12/24/18 12/24/18 History Fish Oil 1,000 mg Sfgl] Pantoprazole 20 mg [Protonix 20 mg PO DAILY 12/24/18 12/24/18 12/24/18 History 20MG Tablet] Ranolazine 500 MG [Ranexa 500 500 mg PO DAILY 12/24/18 12/24/18 12/24/18 History MG] Rosuvastatin Calcium [Crestor] 20 mg PO DAILY 12/24/18 12/24/18 12/24/18 History Sacubitril/Valsartan [Entresto 49 1 each PO BID 12/24/18 12/24/18 12/24/18 History mg-51 mg Tablet] Tiotropium [place] Inhaler 2 puff IH DAILY 12/24/18 12/24/18 12/24/18 History [Spiriva 18 Mcg/Cap Inhaler] Current Medications Generic Name Dose Route Start Last Admin Trade Name Freq PRN Reason Stop Dose Admin Albuterol Sulfate 2 puff 12/25/18 07:00 Proventil Common Canister IH 01/24/19 06:59 Q4HPRN PRN SHORTNESS OF BREATH/WHEEZING Allopurinol 300 mg 12/25/18 10:00 12/25/18 10:31 Zyloprim 300 Mg PO 01/24/19 09:59 300 mg DAILY MAURY Administration Aspirin 81 mg 12/25/18 10:00 12/25/18 10:30 Ecotrin 81 Mg PO 01/24/19 09:59 81 mg DAILY MAURY Administration Carvedilol 12.5 mg 12/24/18 22:00 12/25/18 10:30 Coreg 12.5 Mg PO 01/23/19 21:59 12.5 mg BID MAURY Administration Clopidogrel Bisulfate 75 mg 12/25/18 10:00 12/25/18 10:31 Plavix 75 Mg Tablet PO 01/24/19 09:59 75 mg DAILY MAURY Administration Fish Oil 1,000 mg 12/25/18 10:00 12/25/18 10:28 Fish Oil 1,000 Mg Capsule PO 01/24/19 09:59 1,000 mg DAILY MAURY Administration Furosemide 40 mg 12/25/18 10:00 12/25/18 10:31 Lasix 40 Mg PO 01/24/19 09:59 40 mg DAILY MAURY Administration Gabapentin 300 mg 12/24/18 22:00 12/24/18 21:12 Neurontin 300 Mg PO 01/23/19 21:59 300 mg HS MAURY Administration Sodium Chloride 1,000 mls @ 100 mls/hr 12/24/18 16:26 12/25/18 11:49 Sodium Chloride 0.9% 1000 Ml IV 01/23/19 16:25 100 mls/hr .Q10H MAURY Administration Potassium Chloride 40 meq/ 272 mls @ 68 mls/hr 12/25/18 09:15 12/25/18 09:32 Magnesium Sulfate 1 gm/ Sodium IV 12/25/18 13:14 68 mls/hr Chloride 1XONLY ONE Administration Isosorbide Mononitrate 60 mg 12/25/18 10:00 12/25/18 10:30 Imdur 60mg PO 01/24/19 09:59 60 mg DAILY MAURY Administration Isosorbide Mononitrate 30 mg 12/25/18 10:00 12/25/18 10:29 Imdur 30 Mg PO 01/24/19 09:59 30 mg DAILY MAURY Administration Meclizine HCl 25 mg 12/25/18 07:12 Antivert 25 Mg PO 01/24/19 07:11 DAILY PRN PRN vertigo Miscellaneous Information 1 each 12/25/18 07:45 Medication Intervention 01/24/19 07:44 .RN TO CHECK WITH PT [facility] Miscellaneous Information 1 each 12/25/18 07:45 Medication Intervention 01/24/19 07:44 .RN TO CHECK WITH PT [facility] Multivitamins Therapeutic 1 tab 12/25/18 10:00 12/25/18 10:32 Theragran Multivitamin PO 01/24/19 09:59 1 tab DAILY MAURY Administration Nitroglycerin 0.4 mg 12/25/18 07:15 Nitrostat 0.4 Mg Tablet SL 01/24/19 07:14 UD PRN Pantoprazole Sodium 20 mg 12/25/18 10:00 12/25/18 10:31 Protonix 20mg Tablet PO 01/24/19 09:59 20 mg DAILY MAURY Administration Ranolazine 500 mg 12/25/18 10:00 12/25/18 10:29 Ranexa 500 Mg PO 01/24/19 09:59 500 mg DAILY MAURY Administration Sacubitril/Valsartan 1 tablet 12/24/18 22:00 12/25/18 10:32 Entresto 49 Mg-51 Mg Tablet PO 01/23/19 21:59 1 tablet BID MAURY Administration Fluticasone/Salmeterol 2 puff 12/25/18 07:00 12/25/18 07:15 Advair Hfa 115/21 Common Canister* IH 01/24/19 06:59 2 puff BIDRT MAURY Administration Simvastatin 40 mg 12/25/18 10:00 12/25/18 10:29 Zocor 20mg PO 01/24/19 09:59 40 mg DAILY MAURY Administration Tiotropium [place] 1 ea 12/25/18 07:00 12/25/18 07:15 Spiriva 18 Mcg/Cap Inhaler IH 01/24/19 06:59 1 ea DAILY MAURY Administration Discontinued Medications Generic Name Dose Route Start Last Admin Trade Name Freq PRN Reason Stop Dose Admin Aspirin 243 mg 12/24/18 15:00 12/24/18 15:14 Baby Aspirin 81 Mg Chew PO 12/24/18 15:01 243 mg STAT ONE Administration Aspirin Confirm 12/24/18 15:13 Baby Aspirin 81 Mg Chew Administered 12/24/18 15:14 Dose 243 mg .ROUTE .STK-MED ONE Aspirin 325 mg 12/25/18 10:00 Ecotrin 325 Mg PO 01/24/19 09:59 QAM MAURY Sodium Chloride 1,000 mls @ 100 mls/hr 12/24/18 15:00 12/25/18 01:15 Sodium Chloride 0.9% 1000 Ml IV 01/23/19 14:59 100 mls/hr .Q10H MAURY Administration Potassium Chloride 100 mls @ 50 mls/hr 12/24/18 16:00 12/24/18 18:21 Potassium Chloride 20 Meq In Water 100ml IV 12/24/18 19:59 50 mls/hr Q2H MAURY Administration Potassium Chloride 20 meq in 100 mls @ 50 mls/hr 12/24/18 23:10 12/25/18 01: 16 Potassium Chloride 20 Meq In Water 100ml IV 12/25/18 03:09 50 mls/hr Q2H MAURY Administration Potassium Chloride 20 meq in 100 mls @ 50 mls/hr 12/25/18 08:45 Potassium Chloride 20 Meq In Water 100ml IV 12/25/18 12:44 Q2H MAURY Intake & Output (Last 24 hours) 12/23/18 12/24/18 12/25/18 12/26/18 11:59 11:59 11:59 11:59 Intake Total 1285 360 Output Total 200 250 Balance 1085 110 Weight 99.1 kg Laboratory Results (Last 24 hours) 12/25/18 12/25/18 12/25/18 08:20 04:00 04:00 WBC RBC Hgb Hct MCV MCH MCHC RDW Plt Count MPV Gran % Eos # (Auto) Absolute Lymphs (auto) Absolute Monos (auto) Lymphocytes % Monocytes % Eosinophils % Basophils % Absolute Granulocytes Basophils # PT INR APTT D-Dimer Sodium 141 Potassium 3.0 L 2.8 L* Chloride 101 Carbon Dioxide 33 H Anion Gap 9.4 BUN 14 Creatinine 0.78 Estimated GFR > 60.0 Glucose 119 H Calcium 9.0 Magnesium 1.5 L Total Bilirubin 0.90 AST 26 ALT 12 Alkaline Phosphatase 60 Troponin I Serum Total Protein 6.5 Albumin 3.5 Amylase Lipase 12/25/18 12/25/18 12/25/18 04:00 03:15 00:15 WBC 5.7 RBC 4.23 Hgb 13.5 Hct 39.1 L MCV 92.4 MCH 31.9 MCHC 34.5 RDW 12.9 Plt Count 150 MPV 10.8 H Gran % 48.4 Eos # (Auto) 0.14 Absolute Lymphs (auto) 2.13 Absolute Monos (auto) 0.63 Lymphocytes % 37.6 Monocytes % 11.1 Eosinophils % 2.5 Basophils % 0.4 Absolute Granulocytes 2.74 Basophils # 0.02 PT INR APTT D-Dimer Sodium Potassium Chloride Carbon Dioxide Anion Gap BUN Creatinine Estimated GFR Glucose Calcium Magnesium Total Bilirubin AST ALT Alkaline Phosphatase Troponin I 0.013 0.014 Serum Total Protein Albumin Amylase Lipase 12/24/18 12/24/18 12/24/18 22:48 22:48 18:30 WBC RBC Hgb Hct MCV MCH MCHC RDW Plt Count MPV Gran % Eos # (Auto) Absolute Lymphs (auto) Absolute Monos (auto) Lymphocytes % Monocytes % Eosinophils % Basophils % Absolute Granulocytes Basophils # PT INR APTT D-Dimer Sodium Potassium 2.6 L* Chloride Carbon Dioxide Anion Gap BUN Creatinine Estimated GFR Glucose Calcium Magnesium Total Bilirubin AST ALT Alkaline Phosphatase Troponin I 0.013 < 0.012 Serum Total Protein Albumin Amylase Lipase 12/24/18 12/24/18 12/24/18 15:35 15:28 15:28 WBC RBC Hgb Hct MCV MCH MCHC RDW Plt Count MPV Gran % Eos # (Auto) Absolute Lymphs (auto) Absolute Monos (auto) Lymphocytes % Monocytes % Eosinophils % Basophils % Absolute Granulocytes Basophils # PT 13.3 H INR 1.14 APTT 31.1 D-Dimer 261 Sodium Potassium Chloride Carbon Dioxide Anion Gap BUN Creatinine Estimated GFR Glucose Calcium Magnesium Total Bilirubin AST ALT Alkaline Phosphatase Troponin I 0.013 Serum Total Protein Albumin Amylase 31 Lipase 36 12/24/18 12/24/18 15:28 15:28 WBC 7.5 RBC 4.75 Hgb 15.2 Hct 43.5 MCV 91.6 MCH 32.0 MCHC 34.9 RDW 13.2 Plt Count 207 MPV 11.3 H Gran % 62.6 Eos # (Auto) 0.12 Absolute Lymphs (auto) 2.07 Absolute Monos (auto) 0.57 Lymphocytes % 27.8 Monocytes % 7.7 Eosinophils % 1.6 Basophils % 0.3 Absolute Granulocytes 4.67 Basophils # 0.02 PT INR APTT D-Dimer Sodium 142 Potassium 2.7 L* Chloride 98 Carbon Dioxide 32 H Anion Gap 15.2 H BUN 19 Creatinine 1.13 Estimated GFR > 60.0 Glucose 196 H Calcium 9.8 Magnesium Total Bilirubin 1.20 AST 23 ALT 16 Alkaline Phosphatase 70 Troponin I Serum Total Protein 7.8 Albumin 4.2 Amylase Lipase Orders (Last 24 hours) Category Date Time Status Bedrest with BRP/BSC ROUTINE Activity 12/24/18 16:26 Active Call Admit Doctor for Orders ON ADMISSION Care 12/24/18 16:26 Active Code Status Order ROUTINE Care 12/24/18 16:26 Active EKG-ER Only STAT Care 12/24/18 15:00 Completed IV Care Q6H Care 12/24/18 16:26 Active IV Insertion STAT Care 12/24/18 15:[address] in Observation ROUTINE Care 12/24/18 16:26 Active Pulse Oximetry (ED) STAT Care 12/24/18 15:00 Completed Telemetry q6h Care 12/24/18 16:26 Active Weight,Daily 0600 Care 12/24/18 16:26 Active Nutritional Admission Screen once Diet 12/24/18 17:44 Active CHEST 1 VIEW (PORTABLE) Stat Exams 12/24/18 15:01 Completed AMYLASE Stat Lab 12/24/18 15:35 Completed CBC W DIFF AM.LAB Lab 12/25/18 04:00 Completed CBC W DIFF Stat Lab 12/24/18 15:28 Completed CMP AM.LAB Lab 12/25/18 04:00 Completed CMP Stat Lab 12/24/18 15:28 Completed D-DIMER QUANTITATION Stat Lab 12/24/18 15:28 Completed LIPASE Stat Lab 12/24/18 15:35 Completed MAG [MAGNESIUM] Routine Lab 12/25/18 04:00 Completed PROTIME WITH INR Stat Lab 12/24/18 15:28 Completed PTT Stat Lab 12/24/18 15:28 Completed Potassium (Lab Test) [Potassium] Routine Lab 12/24/18 22:48 Completed Potassium (Lab Test) [Potassium] Routine Lab 12/25/18 08:20 Completed TROPONIN Q3H Lab 12/24/18 15:28 Completed TROPONIN Q3H Lab 12/24/18 18:30 Completed TROPONIN Q3H Lab 12/24/18 22:48 Completed TROPONIN Q3H Lab 12/25/18 00:15 Completed TROPONIN Q3H Lab 12/25/18 03:15 Completed Albuterol Common Canister [Proventil Common Canister Med 12/25/18 07:00 Active ] 2 puff IH Q4HPRN PRN Allopurinol 300 mg [Zyloprim 300 mg] Med 12/25/18 10:00 Active 300 mg PO DAILY Aspirin 81 gm Chew [Baby Aspirin 81 mg Chew] Med 12/24/18 15:13 Discontinued 243 mg .ROUTE .STK-MED ONE Aspirin 81 gm Chew [Baby Aspirin 81 mg Chew] Med 12/24/18 15:00 Discontinued 243 mg PO STAT ONE Aspirin EC 325 mg [Ecotrin 325 MG] Med 12/25/18 10:00 Discontinued 325 mg PO QAM Aspirin EC 81 mg [Ecotrin 81 mg] Med 12/25/18 10:00 Active 81 mg PO DAILY Carvedilol 12.5 mg [Coreg 12.5 mg] Med 12/24/18 22:00 Active 12.5 mg PO BID Clopidogrel Bisulfate 75 mg [PLAVIX 75 MG Tablet] Med 12/25/18 10:00 Active 75 mg PO DAILY Fluticasone/Salmeterol 11521 [Advair Hfa 115/21 Common Med 12/25/18 07:00 Active canister*] 2 puff IH BIDRT Furosemide 40 mg [Lasix 40 MG] Med 12/25/18 10:00 Active 40 mg PO DAILY Gabapentin 300 mg [Neurontin 300 mg] Med 12/24/18 22:00 Active 300 mg PO HS Isosorbide Mononitrate 30 mg [Imdur 30 MG] Med 12/25/18 10:00 Active 30 mg PO DAILY Isosorbide Mononitrate 60 mg [Imdur 60MG] Med 12/25/18 10:00 Active 60 mg PO DAILY Meclizine HCl 25 mg [Antivert 25 mg] Med 12/25/18 07:12 Active 25 mg PO DAILY PRN PRN Medication Intervention Med 12/25/18 07:45 Active 1 each MC .RN TO CHECK WITH PT Medication Intervention Med 12/25/18 07:45 Active 1 each MC .RN TO CHECK WITH PT Multivitamins,Therapeutic Tab* [Theragran Multivitamin* Med 12/25/18 10:00 Active ] 1 tab PO DAILY NaCl 0.9% 1000 ml [Sodium Chloride 0.9% 1000 ML] 1,000 Med 12/24/18 15:00 Discontinued ml IV 100 mls/hr NaCl 0.9% 1000 ml [Sodium Chloride 0.9% 1000 ML] 1,000 Med 12/24/18 16:26 Active ml IV 100 mls/hr Nitroglycerin 0.4 mg Tablet [Nitrostat 0.4 MG Tablet Med 12/25/18 07:15 Active ] 0.4 mg SL UD PRN [place]-3 Fatty Acids/Fish Oil [Fish Oil 1,000 mg Med 12/25/18 10:00 Active Capsule] 1,000 mg PO DAILY Pantoprazole 20 mg [Protonix 20MG Tablet] Med 12/25/18 10:00 Active 20 mg PO DAILY Potassium Chloride 20Meq/100Ml [POTASSIUM CHLORIDE 20 Med 12/24/18 23:10 Discontinued mEq IN WATER 100ML] 20 meq in 100 ml IV Q2H Potassium Chloride 20Meq/100Ml [POTASSIUM CHLORIDE 20 Med 12/25/18 08:45 Discontinued mEq IN WATER 100ML] 20 meq in 100 ml IV Q2H Potassium Chloride 20Meq/100Ml [POTASSIUM CHLORIDE 20 Med 12/24/18 16:00 Discontinued mEq IN WATER 100ML] 100 ml IV Q2H Potassium Cl 40 Meq/20 ml Vial [Potassium Chloride 40 Med 12/25/18 09:15 Active MEQ/20 ML VIAL] 40 meq Magnesium Sulfate 1 gm/2 ml [Magnesium Sulfate 1 GM/ 2 ML VIAL] 1 gm NaCl 0.9% 250 ml [Sodium Chloride 0.9% 250 ML] 250 ml IV 1XONLY Ranolazine 500 MG [Ranexa 500 MG] Med 12/25/18 10:00 Active 500 mg PO DAILY Sacubitril/Valsartan [Entresto 49 mg-51 mg Tablet] Med 12/24/18 22:00 Active 1 tablet PO BID Simvastatin 20Mg [Zocor 20Mg] Med 12/25/18 10:00 Active 40 mg PO DAILY Tiotropium [place] Inhaler [Spiriva 18 Mcg/Cap Med 12/25/18 07:00 Active Inhaler] 1 ea IH DAILY Oxygen Nasal Cannula 3 lpm RT 12/24/18 19:48 Active Pulse Oximetry .continuos RT 12/24/18 16:26 Completed Pulse Oximetry .continuos RT 12/24/18 19:49 Active RT Screen per Nursing Assess ONCE RT 12/24/18 17:44 Completed Respiratory Therapy Assessment DAILY RT 12/25/18 07:18 Active Patient Care Notes (Last 24 hours) 12/25/18 04:20 (created 12/25/18 04:26) Nursing Note by Patrick Olsen called with critical value, K 2.8 from CMP. 2nd Krider ended 314. Critical not called to Dr Quesada at this time d/t lab value drawn before [address] request Initialized on 12/25/18 04:26 - END OF NOTE 12/24/18 23:00 (created 12/24/18 23:18) Nursing Note by Patrick Olsen called with critical K level 2.6, called Dr Quesada, He ordered Krider 40meq and check K level in morning at 8am Initialized on 12/24/18 23:18 - END OF NOTE 12/24/18 20:10 (created 12/24/18 20:30) Nursing Note by Patrick Olsen complete, 2 hr K level order placed Initialized on 12/24/18 20:30 - END OF NOTE 12/24/18 19:01 Nursing Note by Sandra Villela DR PHONED BACK. CONTINUED ALL HOME MEDICATIONS, ORDERD MAGNESIUM LEVEL. Initialized on 12/24/18 19:01 - END OF NOTE 12/24/18 18:57 Nursing Note by Sandra Villela PHONED DR QUESADA PER REQUEST OF PRIMARY NURSE NAYA TO REVIEW HOME MEDICATIONS. DR QUESADA STATES HE WILL CALL BACK. Initialized on 12/24/18 18:57 - END OF NOTE - Vitals & Intake/Output Vital Signs: Vital Signs Temperature 98.5 F 12/25/18 12:00 Pulse Rate 74 12/25/18 12:00 Respiratory Rate 18 12/25/18 12:00 Blood Pressure 105/52 12/25/18 12:00 O2 Sat by Pulse Oximetry 93 L 12/25/18 12:00 Oxygen-Last Documented O2 Percentage 2 Liters = 28% Intake & Output: Intake & Output 12/23/18 12/24/18 12/25/18 12/26/18 11:59 11:59 11:59 11:59 Intake Total 1285 360 Output Total 200 250 Balance 1085 110 Weight 99.1 kg - Lab Result Diagrams: 12/25/18 04:00 12/25/18 08:20 Lab Results-Last 24 Hrs: Lab Results-Last 24 Hours 12/24/18 12/24/18 12/24/18 Range/Units 15:28 15:28 15:28 WBC 7.5 (4.0-10.5) K/mm3 RBC 4.75 (4.1-5.6) M/mm3 Hgb 15.2 (12.5-18.0) gm/dl Hct 43.5 (42-50) % MCV 91.6 (78-100) fl MCH 32.0 (26-32) pg MCHC 34.9 (32-36) g/dl RDW 13.2 (11.5-14.0) % Plt Count 207 (150-450) K/mm3 MPV 11.3 H (6-9.5) fl Gran % 62.6 (36.0-66.0) % Eos # (Auto) 0.12 (0-0.5) Absolute Lymphs (auto) 2.07 (1.0-4.6) Absolute Monos (auto) 0.57 (0.0-1.3) Lymphocytes % 27.8 (24.0-44.0) % Monocytes % 7.7 (0.0-12.0) % Eosinophils % 1.6 (0.00-5.0) % Basophils % 0.3 (0.0-0.4) % Absolute Granulocytes 4.67 (1.4-6.9) Basophils # 0.02 (0-0.4) PT 13.3 H (8.83-12.87) SECONDS INR 1.14 (0.8-3.0) APTT 31.1 (24.1-36.1) SECONDS D-Dimer 261 (215-500) ng/mL Sodium 142 (137-145) mmol/L Potassium 2.7 L* (3.5-5.1) mmol/L Chloride 98 (98-107) mmol/L Carbon Dioxide 32 H (22-30) mmol/L Anion Gap 15.2 H (5-15) MEQ/L BUN 19 (9-20) mg/dL Creatinine 1.13 (0.66-1.25) mg/dL Estimated GFR > 60.0 ML/MIN Glucose 196 H (74-106) mg/dL Calcium 9.8 (8.4-10.2) mg/dL Magnesium (1.6-2.3) mg/dL Total Bilirubin 1.20 (0.2-1.3) mg/dL AST 23 (17-59) U/L ALT 16 (0-50) U/L Alkaline Phosphatase 70 (38-126) U/L Troponin I (0.000-0.034) ng/mL Serum Total Protein 7.8 (6.3-8.2) g/dL Albumin 4.2 (3.5-5.0) g/dL Amylase (30-110) U/L Lipase (23-300) U/L 12/24/18 12/24/18 12/24/18 Range/Units 15:28 15:35 18:30 WBC (4.0-10.5) K/mm3 RBC (4.1-5.6) M/mm3 Hgb (12.5-18.0) gm/dl Hct (42-50) % MCV (78-100) fl MCH (26-32) pg MCHC (32-36) g/dl RDW (11.5-14.0) % Plt Count (150-450) K/mm3 MPV (6-9.5) fl Gran % (36.0-66.0) % Eos # (Auto) (0-0.5) Absolute Lymphs (auto) (1.0-4.6) Absolute Monos (auto) (0.0-1.3) Lymphocytes % (24.0-44.0) % Monocytes % (0.0-12.0) % Eosinophils % (0.00-5.0) % Basophils % (0.0-0.4) % Absolute Granulocytes (1.4-6.9) Basophils # (0-0.4) PT (8.83-12.87) SECONDS INR (0.8-3.0) APTT (24.1-36.1) SECONDS D-Dimer (215-500) ng/mL Sodium (137-145) mmol/L Potassium (3.5-5.1) mmol/L Chloride (98-107) mmol/L Carbon Dioxide (22-30) mmol/L Anion Gap (5-15) MEQ/L BUN (9-20) mg/dL Creatinine (0.66-1.25) mg/dL Estimated GFR ML/MIN Glucose (74-106) mg/dL Calcium (8.4-10.2) mg/dL Magnesium (1.6-2.3) mg/dL Total Bilirubin (0.2-1.3) mg/dL AST (17-59) U/L ALT (0-50) U/L Alkaline Phosphatase (38-126) U/L Troponin I 0.013 < 0.012 (0.000-0.034) ng/mL Serum Total Protein (6.3-8.2) g/dL Albumin (3.5-5.0) g/dL Amylase 31 (30-110) U/L Lipase 36 (23-300) U/L 12/24/18 12/24/18 12/25/18 Range/Units 22:48 22:48 00:15 WBC (4.0-10.5) K/mm3 RBC (4.1-5.6) M/mm3 Hgb (12.5-18.0) gm/dl Hct (42-50) % MCV (78-100) fl MCH (26-32) pg MCHC (32-36) g/dl RDW (11.5-14.0) % Plt Count (150-450) K/mm3 MPV (6-9.5) fl Gran % (36.0-66.0) % Eos # (Auto) (0-0.5) Absolute Lymphs (auto) (1.0-4.6) Absolute Monos (auto) (0.0-1.3) Lymphocytes % (24.0-44.0) % Monocytes % (0.0-12.0) % Eosinophils % (0.00-5.0) % Basophils % (0.0-0.4) % Absolute Granulocytes (1.4-6.9) Basophils # (0-0.4) PT (8.83-12.87) SECONDS INR (0.8-3.0) APTT (24.1-36.1) SECONDS D-Dimer (215-500) ng/mL Sodium (137-145) mmol/L Potassium 2.6 L* (3.5-5.1) mmol/L Chloride (98-107) mmol/L Carbon Dioxide (22-30) mmol/L Anion Gap (5-15) MEQ/L BUN (9-20) mg/dL Creatinine (0.66-1.25) mg/dL Estimated GFR ML/MIN Glucose (74-106) mg/dL Calcium (8.4-10.2) mg/dL Magnesium (1.6-2.3) mg/dL Total Bilirubin (0.2-1.3) mg/dL AST (17-59) U/L ALT (0-50) U/L Alkaline Phosphatase (38-126) U/L Troponin I 0.013 0.014 (0.000-0.034) ng/mL Serum Total Protein (6.3-8.2) g/dL Albumin (3.5-5.0) g/dL Amylase (30-110) U/L Lipase (23-300) U/L 12/25/18 12/25/18 12/25/18 Range/Units 03:15 04:00 04:00 WBC 5.7 (4.0-10.5) K/mm3 RBC 4.23 (4.1-5.6) M/mm3 Hgb 13.5 (12.5-18.0) gm/dl Hct 39.1 L (42-50) % MCV 92.4 (78-100) fl MCH 31.9 (26-32) pg MCHC 34.5 (32-36) g/dl RDW 12.9 (11.5-14.0) % Plt Count 150 (150-450) K/mm3 MPV 10.8 H (6-9.5) fl Gran % 48.4 (36.0-66.0) % Eos # (Auto) 0.14 (0-0.5) Absolute Lymphs (auto) 2.13 (1.0-4.6) Absolute Monos (auto) 0.63 (0.0-1.3) Lymphocytes % 37.6 (24.0-44.0) % Monocytes % 11.1 (0.0-12.0) % Eosinophils % 2.5 (0.00-5.0) % Basophils % 0.4 (0.0-0.4) % Absolute Granulocytes 2.74 (1.4-6.9) Basophils # 0.02 (0-0.4) PT (8.83-12.87) SECONDS INR (0.8-3.0) APTT (24.1-36.1) SECONDS D-Dimer (215-500) ng/mL Sodium 141 (137-145) mmol/L Potassium 2.8 L* (3.5-5.1) mmol/L Chloride 101 (98-107) mmol/L Carbon Dioxide 33 H (22-30) mmol/L Anion Gap 9.4 (5-15) MEQ/L BUN 14 (9-20) mg/dL Creatinine 0.78 (0.66-1.25) mg/dL Estimated GFR > 60.0 ML/MIN Glucose 119 H (74-106) mg/dL Calcium 9.0 (8.4-10.2) mg/dL Magnesium (1.6-2.3) mg/dL Total Bilirubin 0.90 (0.2-1.3) mg/dL AST 26 (17-59) U/L ALT 12 (0-50) U/L Alkaline Phosphatase 60 (38-126) U/L Troponin I 0.013 (0.000-0.034) ng/mL Serum Total Protein 6.5 (6.3-8.2) g/dL Albumin 3.5 (3.5-5.0) g/dL Amylase (30-110) U/L Lipase (23-300) U/L 12/25/18 12/25/18 Range/Units 04:00 08:20 WBC (4.0-10.5) K/mm3 RBC (4.1-5.6) M/mm3 Hgb (12.5-18.0) gm/dl Hct (42-50) % MCV (78-100) fl MCH (26-32) pg MCHC (32-36) g/dl RDW (11.5-14.0) % Plt Count (150-450) K/mm3 MPV (6-9.5) fl Gran % (36.0-66.0) % Eos # (Auto) (0-0.5) Absolute Lymphs (auto) (1.0-4.6) Absolute Monos (auto) (0.0-1.3) Lymphocytes % (24.0-44.0) % Monocytes % (0.0-12.0) % Eosinophils % (0.00-5.0) % Basophils % (0.0-0.4) % Absolute Granulocytes (1.4-6.9) Basophils # (0-0.4) PT (8.83-12.87) SECONDS INR (0.8-3.0) APTT (24.1-36.1) SECONDS D-Dimer (215-500) ng/mL Sodium (137-145) mmol/L Potassium 3.0 L (3.5-5.1) mmol/L Chloride (98-107) mmol/L Carbon Dioxide (22-30) mmol/L Anion Gap (5-15) MEQ/L BUN (9-20) mg/dL Creatinine (0.66-1.25) mg/dL Estimated GFR ML/MIN Glucose (74-106) mg/dL Calcium (8.4-10.2) mg/dL Magnesium 1.5 L (1.6-2.3) mg/dL Total Bilirubin (0.2-1.3) mg/dL AST (17-59) U/L ALT (0-50) U/L Alkaline Phosphatase (38-126) U/L Troponin I (0.000-0.034) ng/mL Serum Total Protein (6.3-8.2) g/dL Albumin (3.5-5.0) g/dL Amylase (30-110) U/L Lipase (23-300) U/L - Radiology Exams Ordered Rad Exams-Entire Visit: Radiology Procedures Category Date Time Status CHEST 1 VIEW (PORTABLE) Stat Exams 12/24/18 15:01 Completed - Procedures and Test Procedures and Tests throughout Hospitalization: Therapy Orders & Screens 12/24/18 17:44 RT Screen per Nursing Assess ONCE Comment: Protocol Order Physician Instructions: Greater than 3 points order RT Admission Screen Reason For Exam: Triggered on Admission Diagnosis: CHEST PAIN Diagnosis: CHEST PAIN Pneumonia: No Home O2: Yes Asthma: No CHF: Yes Home CPAP/BIPAP: No Home Nebs/MDI: Yes Total Points: 13 12/24/18 19:48 Oxygen Nasal Cannula 3 lpm Comment: Diagnosis: CHEST PAIN 12/25/18 07:18 Respiratory Therapy Assessment DAILY Comment: Diagnosis: CHEST PAIN - Discharge Discharge Date: 12/25/18 Disposition: Home, Self-Care Condition: Fair Prescriptions: New Potassium Chloride [K-Dur] 10 meq PO DAILY #30 tab.er.[email or web address] Continue Tiotropium [place] Inhaler [Spiriva 18 Mcg/Cap Inhaler] 2 puff IH DAILY Sacubitril/Valsartan [Entresto 49 mg-51 mg Tablet] 1 each PO BID Rosuvastatin Calcium [Crestor] 20 mg PO DAILY Pantoprazole 20 mg [Protonix 20MG Tablet] 20 mg PO DAILY Nitroglycerin 0.4 mg SL UD Meclizine HCl 25 mg [Antivert 25 mg] 25 mg PO DAILY PRN PRN PRN Reason: vertigo Isosorbide Mononitrate 60 mg [Imdur 60MG] 90 mg PO DAILY Gabapentin 300 mg PO HS Furosemide 40 mg [Lasix 40 MG] 40 mg PO DAILY Fluticasone/Salmeterol Disc [Advair 250-50 Diskus 14 Dose] 1 each IH BID Duloxetine HCl 20 mg PO DAILY Clopidogrel Bisulfate 75 mg [PLAVIX 75 MG Tablet] 75 mg PO DAILY Carvedilol 12.5 mg [Coreg 12.5 mg] 12.5 mg PO BID Aspirin EC 81 mg [Ecotrin 81 mg] 81 mg PO DAILY Allopurinol 300 mg [Zyloprim 300 mg] 300 mg PO DAILY Albuterol Sulfate [Albuterol Sulfate Hfa] 2 puffs IH Q4HPRN PRN PRN Reason: Shortness Of Breath Ranolazine 500 MG [Ranexa 500 MG] 500 mg PO DAILY Diazepam [Valium] 1 mg PO UD [place]-3S/Dha/Epa/Fish Oil [[place]-3 Fish Oil 1,000 mg Sfgl] 1 each PO DAILY Multivitamin [Multi-Vitamin Daily] 1 each PO DAILY Follow up with: DOCTOR,NO FAMILY [Primary Care Provider] - 1 Week
== END 2018-12-25 15:55 | disposition home or self-care (01) ==
LOC: ED 14:29 → MED SURG 16:26
PROVIDERS: ADMIT General Practice; ATTEND General Practice
DX: E87.6 Hypokalemia (principal); R07.9 Chest pain, unspecified; J44.9 Chronic obstructive pulmonary disease, unspecified; I25.10 Atherosclerotic heart disease of native coronary artery without angina pectoris; Z95.1 Presence of aortocoronary bypass graft; Z79.82 Long term (current) use of aspirin; Z79.899 Other long term (current) drug therapy; I10 Essential (primary) hypertension; I25.2 Old myocardial infarction; Z87.442 Personal history of urinary calculi
CPT/HCPCS: 36000; 36415; 71045; 80053; 82150; 83690; 83735; 84132; 84484; 85025; 85379; 85610; 85730; 93005; 93268; 94640; 94762; 96360; 96374; 99285; G0378; 96375; J3475; J3480; A9270-GY